=== PATIENT | male | born 1945 | race Asian ===

== ENCOUNTER → 2020-07-13 | Outpatient (CLI) | payer MEDICARE | END | disposition home or self-care (01) | LOC: RADPV 11:24 | PROVIDERS: ATTEND Internal Medicine | DX: M79.89 Other specified soft tissue disorders (principal); M25.561 Pain in right knee | CPT/HCPCS: 73562-TC ==

== ENCOUNTER 2023-09-04 19:24 | Inpatient (IN) | payer MEDICARE ==
[~2023-09-04] VITALS: Ht 160 cm; Wt 71.8 kg
[2023-09-04 19:25] VITALS: PULSE 130; RESP 32; O2SAT 99
[2023-09-04 19:30] VITALS: PULSE 132; RESP 34; O2SAT 99
[2023-09-04] MEDS ORDERED: MethylPREDNISolone SOD SUCC 125 MG/2 ML VIAL IVP ONE (19:30)
[2023-09-04] MEDS ORDERED: IPRATROPIUM BROMIDE 0.5 MG/2.5 ML NEB SOLUTION NEB ONE (19:30)
[2023-09-04] MEDS ORDERED: EPINEPHrine 1:1,000 [1 MG/ML] VIAL IM ONE (19:30)
[2023-09-04] MEDS ORDERED: ALBUTEROL SULFATE 2.5 MG/0.5 ML NEB SOLUTION NEB ONE (19:30)
[2023-09-04] MEDS ORDERED: ALBUTEROL SULFATE 2.5 MG/0.5 ML 5 ML NEB SOLUTION NEB ONE ×2 (19:36→20:00)
[2023-09-04] MEDS ORDERED: NITROGLYCERIN 2% (1 GM=INCH) OINTMENT PACKET TP ONE (19:45)
[2023-09-04] MEDS ORDERED: ASPI-1450 PO (19:47)
[2023-09-04] MEDS ORDERED: TAMS0.4C94 PO (19:47)
[2023-09-04 19:50] VITALS: PULSE 122; RESP 32; O2SAT 100
[2023-09-04] MEDS ORDERED: FINA-27 PO (19:53)
[2023-09-04] MEDS ORDERED: ATOR10TA PO (19:53)
[2023-09-04] MEDS ORDERED: TIOT4MIS3 IH (19:53)
[2023-09-04] MEDS ORDERED: BRIM5DRO9 OU (19:53)
[2023-09-04] MEDS ORDERED: FUROSEMIDE 40 MG/4 ML VIAL IVP ONE (20:00)
[2023-09-04 20:35] LABS: BASOPHILS % (AUTO) 0.5 % (0.0-2.0); EOSINOPHILS % (AUTO) 12.1 % (1.0-6.0); HEMOGLOBIN 14.7 g/dL (13.5-17.5); LYMPHOCYTES # (AUTO) 4.3 K/uL (1.0-4.8); LYMPHOCYTES % (AUTO) 35.2 % (22.0-44.0); MEAN CORPUSCULAR HEMOGLOBIN 30.7 pg (26.0-34.0); MEAN CORPUSCULAR HGB CONC 32.6 G/dL (31.0-37.0); MEAN CORPUSCULAR VOLUME 94 fL (80-100); MONOCYTES # (AUTO) 0.9 K/uL (0.1-1.0); NEUTROPHILS # (AUTO) 5.5 K/uL (1.8-7.7); NEUTROPHILS % (AUTO) 45.2 % (40.0-70.0); PLATELET COUNT (AUTO) 240 K/uL (150-450); RED BLOOD CELL COUNT(AUTO) 4.79 MIL/uL (4.50-5.90); RED CELL DISTRIBUTION WIDTH 13.6 % (11.5-14.5); WHITE BLOOD COUNT (AUTO) 12.2 K/uL (4.5-11.0)
[2023-09-04 20:44] LABS: CALCIUM, TOTAL 8.3 mg/dL (8.8-10.5); CREATININE 1.48 mg/dL (0.60-1.30); POTASSIUM 3.5 mmol/L (3.5-5.1)
[2023-09-04 20:50] VITALS: PULSE 123; RESP 30; O2SAT 99
[2023-09-04 20:51] LABS: COVID AG,FIA SOURCE NASAL SWAB
[2023-09-04 20:52] LABS: TROPONIN I-HIGH SENSITIVITY 10 ng/L (<76)
[2023-09-04 21:03] LABS: APPEARANCE,URINE CLEAR (CLEAR); BILIRUBIN,URINE NEGATIVE (NEGATIVE); COLOR,URINE LIGHT YELLOW (YELLOW); GLUCOSE, URINE (UA) NEGATIVE (NEGATIVE); KETONES,URINE NEGATIVE (NEGATIVE); LEUKOCYTE ESTERASE ,URINE NEGATIVE (NEGATIVE); NITRATE,URINE NEGATIVE (NEGATIVE); OCCULT BLOOD,URINE MODERATE (NEGATIVE); PROTEIN,URINE 100-200,SEE CONFIRM mg/dL (NEGATIVE); UROBILINOGEN,URINE <=1.0 mg/dL (<=1.0)
[2023-09-04 21:10] LABS: ALBUMIN 3.4 g/dL (3.4-5.0); BILIRUBIN,TOTAL 0.2 mg/dL (0.1-1.0); TOTAL PROTEIN, SERUM 7.9 g/dL (6.4-8.2)
[2023-09-04 21:19] LABS: SULFOSALICYLIC ACID,URINE 3+ (Negative)
[2023-09-04 21:21] LABS: BACTERIA,URINE None Seen /HPF (None Seen); WBC,URINE None Seen /HPF (0-5)
[2023-09-04 21:37] LABS: SARS-COV2 (COVID) ANTIGEN,FIA Negative (Negative)
[2023-09-04] MEDS ORDERED: ONDANSETRON HCL 4 MG/2 ML VIAL IVP PRN (21:45)
[2023-09-04] MEDS ORDERED: ALBUTEROL SULFATE 2.5 MG/0.5 ML NEB SOLUTION NEB PRN (21:45)
[2023-09-04] MEDS ORDERED: DEXTROSE 50%-WATER 25 GM/50 ML SYRINGE IVP PRN (21:45)
[2023-09-04] MEDS ORDERED: INSULIN LISPRO 100 UNITS/ML SQ PRN (21:45)
[2023-09-04] MEDS ORDERED: IPRATROPIUM BROMIDE 0.5 MG/2.5 ML NEB SOLUTION NEB PRN (21:45)
[2023-09-04] MEDS ORDERED: ACETAMINOPHEN 325 MG TABLET PO PRN (21:45)
[2023-09-04 21:53] LABS: ABG BASE EXCESS 0.9 mmol/L (-2.0-3.0); ABG CARBOXYHEMOGLOBIN 0.4 % (0.0-1.5); ABG HCO3 25.4 mmol/L (22.0-26.0); ABG METHEMOGLOBIN 0.3 % (0.0-1.5); ABG OXYGEN CONTENT 21.1 mL/dL (15.0-23.0); ABG OXYGEN SATURATION 99.1 % (95.0-98.0); ABG OXYHEMOGLOBIN 98.4 % (94.0-100.0); ABG PCO2 40 mmHg (35-45); ABG PH 7.424 (7.35-7.450); ABG TOTAL HEMOGLOBIN 14.7 G/dL (12.0-18.0); PO2, ARTERIAL BG 304.7 mmHg (75.0-83.0); SOURCE, BLOOD GAS ARTERIAL; TEMPERATURE, FAHRENHEIT, BG 99.2 FAHREN (96.0-98.6)
[2023-09-04 21:54] LABS: ABG A-A DIFF O2 79.1 mmHg (10-20.0); ALLEN TEST, BLOOD GAS Positive; O2 DEVICE,BLOOD GAS BIPAP (ROOM AIR); SITE, BLOOD GAS LFT RADIAL
[2023-09-04 21:55] VITALS: PULSE 110; RESP 20; O2SAT 98
[2023-09-04 21:55] LABS: INSPIRATORY TIME, BG 0.9 SEC
[2023-09-04 22:22] LABS: LACTIC ACID 3.4 mmol/L (0.4-2.0)
[2023-09-04] MEDS ORDERED: SODIUM CHLORIDE 0.9% 500 ML IV ONE ×2 (22:45→22:48)
[2023-09-04] MEDS: CefTRIAXone 1 GM/DEXTROSE 50 ML IV SCH (22:50)
[2023-09-04] MEDS ORDERED: IOHEXOL 350 MG/ML 100 ML VIAL ONE (23:44)
[2023-09-04] MEDS ORDERED: SODIUM CHLORIDE 0.9% 100 ML ONE (23:44)
[2023-09-05] VITALS (9 sets, daily range): BP systolic 108–138; BP diastolic 64–89; PULSE 83–105; RESP 14–30; TEMP 97.3–98.6; O2SAT 92–97
[2023-09-05] MEDS: RINGERS SOLUTION,LACTATED 1,000 ML IV SCH ×3 (00:25→18:39)
[2023-09-05 00:47] LABS: TROPONIN I-HIGH SENSITIVITY 28 ng/L (<76)
[2023-09-05] MEDS ORDERED: SODIUM CHLORIDE 0.9% 500 ML IV ONE (04:30)
[2023-09-05 06:03] LABS: BASOPHILS % (AUTO) 0.2 % (0.0-2.0); EOSINOPHILS % (AUTO) 0.1 % (1.0-6.0); HEMATOCRIT 41.6 % (41-53); HEMOGLOBIN 13.9 g/dL (13.5-17.5); LYMPHOCYTES # (AUTO) 0.6 K/uL (1.0-4.8); LYMPHOCYTES % (AUTO) 13.3 % (22.0-44.0); MEAN CORPUSCULAR HGB CONC 33.4 G/dL (31.0-37.0); MEAN CORPUSCULAR VOLUME 93 fL (80-100); MONOCYTES # (AUTO) 0.1 K/uL (0.1-1.0); MONOCYTES % (AUTO) 2.5 % (2.0-9.0); NEUTROPHILS # (AUTO) 3.7 K/uL (1.8-7.7); NEUTROPHILS % (AUTO) 83.9 % (40.0-70.0); PLATELET COUNT (AUTO) 227 K/uL (150-450); RED BLOOD CELL COUNT(AUTO) 4.48 MIL/uL (4.50-5.90); RED CELL DISTRIBUTION WIDTH 13.5 % (11.5-14.5); WHITE BLOOD COUNT (AUTO) 4.4 K/uL (4.5-11.0)
[2023-09-05 06:17] LABS: ANION GAP 9 mmol/L (8-16); CALCIUM, TOTAL 8.8 mg/dL (8.8-10.5); CARBON DIOXIDE 25 mmol/L (22-29); CHLORIDE 101 mmol/L (98-107); CREATININE 0.99 mg/dL (0.60-1.30); GLOMERULAR FILTR. RATE CALC > 60 mL/min (>60); GLUCOSE,RANDOM 152 mg/dL (70-110); POTASSIUM 4.2 mmol/L (3.5-5.1); SODIUM SERUM 135 mmol/L (136-145); UREA NITROGEN, BLOOD 26 mg/dL (7-18)
[2023-09-05 06:18] LABS: TROPONIN I-HIGH SENSITIVITY 16 ng/L (<76)
[2023-09-05] MEDS: HEPARIN SODIUM,PORCINE 5,000 UNITS/ML VIAL SQ SCH ×3 (06:28→23:54)
[2023-09-05] MEDS: BRIMONIDINE TARTRATE 0.2% 5 ML OPHTHALMIC SOLUTION OU SCH ×2 (08:12→21:02)
[2023-09-05] MEDS: MethylPREDNISolone SOD SUCC 125 MG/2 ML VIAL IVP SCH (08:12)
[2023-09-05] MEDS: FINASTERIDE 5 MG TABLET PO SCH (08:12)
[2023-09-05] MEDS: TAMSULOSIN HCL 0.4 MG CAPSULE PO SCH (08:13)
[2023-09-05] MEDS: ASPIRIN 81 MG CHEWABLE TABLET PO SCH (08:13)
[2023-09-05] MEDS: ETHYL ALCOHOL 62% ANTISEPTIC NASAL SANITIZER 0.6 ML AMPUL NASAL SCH ×2 (08:16→21:01)
[2023-09-05] MEDS: FAMOTIDINE 20 MG/2 ML VIAL IVP SCH ×2 (08:16→21:01)
[2023-09-05 17:17] LABS: GLUCOMETER DEV NAME(LOC) ICUN.5; GLUCOSE,POINT OF CARE 134 MG/DL (70-110)
[2023-09-05 18:07] LABS: GLUCOMETER DEV NAME(LOC) ICUN.5; GLUCOSE,POINT OF CARE 155 MG/DL (70-110)
[2023-09-05] MEDS: ATORVASTATIN CALCIUM 10 MG TABLET PO SCH (21:01)
[2023-09-05] MEDS: CefTRIAXone 1 GM/DEXTROSE 50 ML IV SCH (22:13)
[2023-09-05] MEDS ORDERED: BENZONATATE 100 MG CAPSULE PO PRN (23:45)
[2023-09-06] VITALS (8 sets, daily range): BP systolic 108–169; BP diastolic 59–84; PULSE 63–84; RESP 16–24; TEMP 97.6–98
[2023-09-06 05:21] LABS: GLUCOMETER DEV NAME(LOC) ICUN.5; GLUCOSE,POINT OF CARE 131 MG/DL (70-110)
[2023-09-06] MEDS: RINGERS SOLUTION,LACTATED 1,000 ML IV SCH ×3 (05:22→22:45)
[2023-09-06 05:41] LABS: BASOPHILS % (AUTO) 0.1 % (0.0-2.0); EOSINOPHILS % (AUTO) 0.2 % (1.0-6.0); HEMATOCRIT 40.4 % (41-53); HEMOGLOBIN 13.4 g/dL (13.5-17.5); LYMPHOCYTES # (AUTO) 1.4 K/uL (1.0-4.8); LYMPHOCYTES % (AUTO) 13.8 % (22.0-44.0); MEAN CORPUSCULAR HEMOGLOBIN 30.7 pg (26.0-34.0); MEAN CORPUSCULAR HGB CONC 33.2 G/dL (31.0-37.0); MEAN CORPUSCULAR VOLUME 92 fL (80-100); MONOCYTES # (AUTO) 1.1 K/uL (0.1-1.0); MONOCYTES % (AUTO) 11.5 % (2.0-9.0); NEUTROPHILS # (AUTO) 7.3 K/uL (1.8-7.7); NEUTROPHILS % (AUTO) 74.4 % (40.0-70.0); PLATELET COUNT (AUTO) 228 K/uL (150-450); RED BLOOD CELL COUNT(AUTO) 4.37 MIL/uL (4.50-5.90); RED CELL DISTRIBUTION WIDTH 13.7 % (11.5-14.5); WHITE BLOOD COUNT (AUTO) 9.8 K/uL (4.5-11.0)
[2023-09-06 05:48] LABS: HEMOGLOBIN A1C 5.9 % (3.8-5.6)
[2023-09-06 05:49] LABS: ANION GAP 6 mmol/L (8-16); CALCIUM, TOTAL 8.9 mg/dL (8.8-10.5); CARBON DIOXIDE 27 mmol/L (22-29); CHLORIDE 103 mmol/L (98-107); GLOMERULAR FILTR. RATE CALC > 60 mL/min (>60); GLUCOSE,RANDOM 124 mg/dL (70-110); SODIUM SERUM 136 mmol/L (136-145); UREA NITROGEN, BLOOD 27 mg/dL (7-18)
[2023-09-06 07:06] LABS: GLUCOSE,POINT OF CARE 124 MG/DL (70-110)
[2023-09-06] MEDS: HEPARIN SODIUM,PORCINE 5,000 UNITS/ML VIAL SQ SCH ×3 (07:28→23:03)
[2023-09-06] MEDS: TAMSULOSIN HCL 0.4 MG CAPSULE PO SCH (07:28)
[2023-09-06] MEDS: FINASTERIDE 5 MG TABLET PO SCH (07:28)
[2023-09-06] MEDS: ASPIRIN 81 MG CHEWABLE TABLET PO SCH (07:29)
[2023-09-06] MEDS: FAMOTIDINE 20 MG/2 ML VIAL IVP SCH ×2 (07:29→20:38)
[2023-09-06] MEDS: MethylPREDNISolone SOD SUCC 125 MG/2 ML VIAL IVP SCH (07:29)
[2023-09-06] MEDS: ETHYL ALCOHOL 62% ANTISEPTIC NASAL SANITIZER 0.6 ML AMPUL NASAL SCH ×2 (07:29→20:38)
[2023-09-06] MEDS: BRIMONIDINE TARTRATE 0.2% 5 ML OPHTHALMIC SOLUTION OU SCH ×2 (07:30→20:38)
[2023-09-06 11:46] LABS: GLUCOSE,POINT OF CARE 110 MG/DL (70-110)
[2023-09-06 18:01] LABS: GLUCOMETER DEV NAME(LOC) 5N.2C; GLUCOSE,POINT OF CARE 89 MG/DL (70-110)
[2023-09-06] MEDS: ATORVASTATIN CALCIUM 10 MG TABLET PO SCH (20:38)
[2023-09-06] MEDS: CefTRIAXone 1 GM/DEXTROSE 50 ML IV SCH (21:20)
[2023-09-07] VITALS: PULSE 63
[2023-09-07 00:20] VITALS: BP 143/70; PULSE 80; RESP 18; TEMP 97.8
[2023-09-07 04:00] VITALS: PULSE 59
[2023-09-07 04:10] VITALS: BP 157/78; PULSE 70; RESP 19; TEMP 97.7
[2023-09-07 06:57] LABS: BASOPHILS % (AUTO) 0.1 % (0.0-2.0); EOSINOPHILS % (AUTO) 3.6 % (1.0-6.0); HEMATOCRIT 42.6 % (41-53); HEMOGLOBIN 14.3 g/dL (13.5-17.5); LYMPHOCYTES # (AUTO) 2.5 K/uL (1.0-4.8); LYMPHOCYTES % (AUTO) 25.9 % (22.0-44.0); MEAN CORPUSCULAR HEMOGLOBIN 31.1 pg (26.0-34.0); MEAN CORPUSCULAR HGB CONC 33.6 G/dL (31.0-37.0); MEAN CORPUSCULAR VOLUME 93 fL (80-100); MONOCYTES # (AUTO) 1.1 K/uL (0.1-1.0); MONOCYTES % (AUTO) 11.1 % (2.0-9.0); NEUTROPHILS # (AUTO) 5.7 K/uL (1.8-7.7); NEUTROPHILS % (AUTO) 59.3 % (40.0-70.0); PLATELET COUNT (AUTO) 214 K/uL (150-450); RED BLOOD CELL COUNT(AUTO) 4.59 MIL/uL (4.50-5.90); RED CELL DISTRIBUTION WIDTH 13.7 % (11.5-14.5); WHITE BLOOD COUNT (AUTO) 9.6 K/uL (4.5-11.0)
[2023-09-07 07:02] LABS: GLUCOMETER DEV NAME(LOC) 5S.1B; GLUCOSE,POINT OF CARE 115 MG/DL (70-110)
[2023-09-07 07:02] LABS: GLUCOMETER DEV NAME(LOC) 5S.1B; GLUCOSE,POINT OF CARE 92 MG/DL (70-110)
[2023-09-07 07:06] LABS: ANION GAP 7 mmol/L (8-16); CALCIUM, TOTAL 8.4 mg/dL (8.8-10.5); CARBON DIOXIDE 29 mmol/L (22-29); CHLORIDE 103 mmol/L (98-107); CREATININE 0.89 mg/dL (0.60-1.30); GLOMERULAR FILTR. RATE CALC > 60 mL/min (>60); GLUCOSE,RANDOM 94 mg/dL (70-110); SODIUM SERUM 139 mmol/L (136-145); UREA NITROGEN, BLOOD 20 mg/dL (7-18)
[2023-09-07 08:00] VITALS: BP 123/73; PULSE 63; PULSE 95; RESP 16; TEMP 97.5
[2023-09-07] MEDS: ASPIRIN 81 MG CHEWABLE TABLET PO SCH (09:31)
[2023-09-07] MEDS: MethylPREDNISolone SOD SUCC 125 MG/2 ML VIAL IVP SCH (09:31)
[2023-09-07] MEDS: TAMSULOSIN HCL 0.4 MG CAPSULE PO SCH (09:31)
[2023-09-07] MEDS: FINASTERIDE 5 MG TABLET PO SCH (09:32)
[2023-09-07] MEDS: HEPARIN SODIUM,PORCINE 5,000 UNITS/ML VIAL SQ SCH (09:33)
[2023-09-07] MEDS: FAMOTIDINE 20 MG/2 ML VIAL IVP SCH (09:34)
[2023-09-07] MEDS: BRIMONIDINE TARTRATE 0.2% 5 ML OPHTHALMIC SOLUTION OU SCH (09:34)
[2023-09-07] MEDS: ETHYL ALCOHOL 62% ANTISEPTIC NASAL SANITIZER 0.6 ML AMPUL NASAL SCH (09:35)
[2023-09-07] MEDS: RINGERS SOLUTION,LACTATED 1,000 ML IV SCH (09:43)
[2023-09-07 12:00] VITALS: BP 144/64; PULSE 75; PULSE 87; RESP 18; TEMP 97.5
[2023-09-07 12:12] LABS: GLUCOMETER DEV NAME(LOC) 5N.2C; GLUCOSE,POINT OF CARE 122 MG/DL (70-110)
[2023-09-07] MEDS ORDERED: FLUT1BLS IH (12:44)
[2023-09-07] MEDS ORDERED: TIOT4MIS3 IH (12:44)
[2023-09-07] MEDS ORDERED: PRED-554 PO (12:44)
[2023-09-07] MEDS ORDERED: AMLO2.5T96 PO (14:28)
== END 2023-09-07 16:25 | disposition home health service (06) | DRG 871 ==
LOC: EMS 19:24 → ICU 22:03 → 5S 09-06 11:40
PROVIDERS: ADMIT Internal Medicine; ATTEND Internal Medicine
DX: A41.9 Sepsis, unspecified organism (principal); J18.9 Pneumonia, unspecified organism; J96.01 Acute respiratory failure with hypoxia; J44.1 Chronic obstructive pulmonary disease with (acute) exacerbation; E87.20 Acidosis, unspecified; J44.0 Chronic obstructive pulmonary disease with (acute) lower respiratory infection; E78.00 Pure hypercholesterolemia, unspecified; I10 Essential (primary) hypertension; Z20.822 Contact with and (suspected) exposure to COVID-19; I70.0 Atherosclerosis of aorta; N40.0 Benign prostatic hyperplasia without lower urinary tract symptoms; Z79.899 Other long term (current) drug therapy; Z79.82 Long term (current) use of aspirin; Z87.891 Personal history of nicotine dependence
CPT/HCPCS: 36600; 71045; 71275; 80048; 80053; 81001; 81002; 82550; 82805; 82962; 83036; 83605; 83735; 83880; 84145; 84484; 85025; 85379; 87040; 87081; 93005; 94640; 94644; 94660; 97116; 97161; 97166; 99291; J0696; J1644; J1940; J2930; J3490; J7040; J7050; J7120; Q9967; 36415-L1; 36415-TC; J7613